=== PATIENT | female | born 1980 | race Caucasian/White ===

== ENCOUNTER 2018-03-19 12:09 | Emergency (ER) | payer OTHER ==
[~2018-03-19] VITALS: Ht 170.2 cm; Wt 79.4 kg
[~2018-03-19 12:09] MED LIST: AMITRIPTYLINE H50 M2 PO; BENZTROPINE MES1 MG PO; CELEXA 20 MG TA20 M1 PO; CLEOCIN HCL150 MG PO; CLONAZEPAM PO; ESKALITH300 MG PO; FLONASE16 GM; HYDROCODONE-AP1 EAC6 PO; INDERAL 20 MG T20 M1 PO; PENICILLIN VK250 MG PO; PROAIR; REMERON45 MG PO; RISPERDAL 1 MG T1 MG PO; SEE COMMENTS; SEROQUEL 50 MG50 M1 PO; ULTRAM 50MG TAB50 MG PO; XANAX 1 MG TABLE1 MG PO
[2018-03-19 14:30] VITALS: BP 107/78
== END 2018-03-19 14:32 | disposition home or self-care (01) ==
LOC: M.ERS 12:09
DX: S09.8XXA Other specified injuries of head, initial encounter (principal); M54.5 Low back pain; M25.561 Pain in right knee; J45.909 Unspecified asthma, uncomplicated; F31.9 Bipolar disorder, unspecified; F41.9 Anxiety disorder, unspecified; F43.10 Post-traumatic stress disorder, unspecified; F17.210 Nicotine dependence, cigarettes, uncomplicated; Z88.6 Allergy status to analgesic agent; W10.8XXA Fall (on) (from) other stairs and steps, initial encounter; Y93.89 Activity, other specified; Y92.89 Other specified places as the place of occurrence of the external cause; Y99.8 Other external cause status

== ENCOUNTER 2019-04-20 12:40 | Emergency (ER) | payer OTHER ==
[~2019-04-20] VITALS: Ht 170.2 cm; Wt 79.4 kg
[2019-04-20 13:11] LABS: URINE BILIRUBIN NEGATIVE (Negative); URINE BLOOD TRACE (Negative); URINE CLARITY CLEAR; URINE COLOR YELLOW; URINE GLUCOSE-RANDOM NEGATIVE (Negative); URINE KETONES NEGATIVE (Negative); URINE LEUKOCYTES-REFLEX NEGATIVE (Negative); URINE NITRITE-REFLEX NEGATIVE (Negative); URINE PROTEIN NEGATIVE (Negative); URINE SPECIFIC GRAVITY 1.015 (1.005-1.030); URINE UROBILINOGEN 0.2 E.U./dl (0.2-1.0)
[2019-04-20 13:29] LABS: HEMATOCRIT 41.2 % (37.0-47.0); HEMOGLOBIN 13.7 gm/dL (12.0-15.0); MCH 28.7 pg (26.0-34.0); MCHC 33.2 g/dL (28.0-37.0); MCV 86.5 fL (80.0-100.0); MPV 8.9 fl. (7.2-11.1); RBC 4.76 mil/uL (4.20-5.00); RDW-CV 13.6 % (10.5-14.5); WBC 8.5 thou/uL (4.0-11.0)
[2019-04-20 13:47] LABS: CREATININE 0.7 mg/dL (0.6-1.3); POTASSIUM 4.1 mmol/L (3.5-5.1)
[2019-04-20 13:56] LABS: ALBUMIN 3.7 g/dL (3.4-5.0); TOTAL BILIRUBIN 0.2 mg/dL (<0.1-1.0); TOTAL PROTEIN 7.4 g/dL (6.4-8.2)
[2019-04-20] MEDS ORDERED: NORCO 5-325 TA1 EAC1 PO (14:48)
[2019-04-20] MEDS ORDERED: KEFLEX500 M1 PO (14:48)
[2019-04-20 14:55] VITALS: BP 119/74
== END 2019-04-20 14:57 | disposition home or self-care (01) ==
LOC: M.ERS 12:40
PROVIDERS: Emergency Medicine Emergency Medical Services
DX: R10.32 Left lower quadrant pain (principal); J45.909 Unspecified asthma, uncomplicated; F31.9 Bipolar disorder, unspecified; F41.9 Anxiety disorder, unspecified; Z90.49 Acquired absence of other specified parts of digestive tract; Z90.710 Acquired absence of both cervix and uterus; F17.210 Nicotine dependence, cigarettes, uncomplicated; Z88.5 Allergy status to narcotic agent; Z88.6 Allergy status to analgesic agent

== ENCOUNTER 2019-07-10 18:49 | Emergency (ER) | payer OTHER ==
[~2019-07-10] VITALS: Ht 170.2 cm; Wt 81.7 kg
[~2019-07-10 18:49] MED LIST changes: +KEFLEX500 M1 PO; +NORCO 5-325 TA1 EAC1 PO
[2019-07-10] MEDS ORDERED: AUGMENTIN 875-1 EACH PO (20:01)
[2019-07-10] MEDS ORDERED: PREDNISONE 20 M20 M1 PO (20:01)
[2019-07-10 20:43] VITALS: BP 144/84
== END 2019-07-10 20:17 | disposition home or self-care (01) ==
LOC: M.ERS 18:49
DX: J03.00 Acute streptococcal tonsillitis, unspecified (principal); F17.210 Nicotine dependence, cigarettes, uncomplicated; F41.9 Anxiety disorder, unspecified; F31.9 Bipolar disorder, unspecified; J45.909 Unspecified asthma, uncomplicated; Z88.8 Allergy status to other drugs, medicaments and biological substances; Z88.6 Allergy status to analgesic agent; Z90.710 Acquired absence of both cervix and uterus; Z90.49 Acquired absence of other specified parts of digestive tract